=== PATIENT | female | born 1940 | race Caucasian/White ===

== ENCOUNTER 2021-07-27 15:26 | Emergency (ER) | payer OTHER ==
[2021-07-27] MEDS ORDERED: DIPHTH,PERTUSS(ACELL),TET 0.5 ML DISP.SYRIN IM ONE (15:43)
[2021-07-27 16:21] VITALS: TEMP 98.3; BMI 21.6
[2021-07-27 17:29] LABS: URINE APPEARANCE CLOUDY; URINE BILIRUBIN NEGATIVE (NEGATIVE); URINE COLOR YELLOW; URINE GLUCOSE (UA) NEGATIVE (NEGATIVE); URINE KETONE TRACE (NEGATIVE); URINE LEUK ESTERASE NEGATIVE (NEGATIVE); URINE NITRITE NEGATIVE (NEGATIVE); URINE PROTEIN TRACE (NEGATIVE); URINE UROBILINOGEN 0.2 mg/dL (0.2-1.0)
[2021-07-27 17:35] LABS: BASO % 0.4 % (0-2.0); HEMOGLOBIN 13.6 GM/dL (10.7-15.3); LYMPH % 15.2 % (8-40); MCHC 33.9 g/dl (32.0-36.0); MEAN CELL VOLUME 88.6 fl (80-96); MEAN PLT VOLUME 9.1 fl (7.5-11.1); MONO % 6.7 % (3.8-10.2); NEUT % 76.7 % (42.8-82.8); PLATELET COUNT 334 10^3/uL (134-434); RBC 4.52 M/mm3 (3.60-5.2); RDW 13.7 % (11.6-15.6)
[2021-07-27 17:54] LABS: CHLORIDE 108 mmol/L (98-107); SODIUM 144 mmol/L (136-145)
[2021-07-27 17:56] LABS: CALCIUM 10.1 mg/dL (8.5-10.1)
[2021-07-27 17:57] LABS: ANION GAP 7 MMOL/L (8-16); BLOOD UREA NITROGEN 16.5 mg/dL (7-18); CO2 28 mmol/L (21-32); GLUCOSE,RANDOM 78 mg/dL (74-106); MAGNESIUM 2.3 mg/dL (1.8-2.4)
[2021-07-27 18:00] LABS: CREATININE 0.7 mg/dL (0.55-1.3); SGOT/AST 14 U/L (15-37); SGPT/ALT 22 U/L (13-61)
[2021-07-27 18:02] LABS: BILIRUBIN,TOTAL 0.4 mg/dL (0.2-1); TOT PROT 7.3 g/dl (6.4-8.2)
[2021-07-27 18:03] LABS: ALK PHOS 147 U/L (45-117)
[2021-07-27 21:23] VITALS: BP 152/107; PULSE 78
== END 2021-07-27 21:37 | disposition home or self-care (01) ==
LOC: JER 15:26
PROC: 0HQ0XZZ Repair Scalp Skin, External Approach (ICD-10-PCS; principal; 2021-07-27)
PROC: 3E0234Z Introduction of Serum, Toxoid and Vaccine into Muscle, Percutaneous Approach (ICD-10-PCS; 2021-07-27)
DX: S01.81XA Laceration without foreign body of other part of head, initial encounter (principal); W01.190A Fall on same level from slipping, tripping and stumbling with subsequent striking against furniture, initial encounter
CPT/HCPCS: 12001-25; 36415; 70450-TC; 72125-TC; 80053; 81003; 83735; 84484; 85025; 87086; 87186; 90471; 90715; 93005; 93010; 99285-25